=== PATIENT | male | born 1995 | race Two or more races ===

== ENCOUNTER 2018-12-03 12:17 | Emergency (ER) | payer SELFPAY ==
[~2018-12-03] VITALS: Ht 177.8 cm; Wt 82.3 kg
[2018-12-03 12:54] VITALS: Ht 177.8 cm; Wt 82.3 kg
[2018-12-03] MEDS ORDERED: TORADOL10 MG PO (16:06)
[2018-12-03 16:23] VITALS: BP 120/62
== END 2018-12-03 16:23 | disposition home or self-care (01) ==
LOC: D.ER 12:17
DX: S61.210A Laceration without foreign body of right index finger without damage to nail, initial encounter (principal); W26.8XXA Contact with other sharp object(s), not elsewhere classified, initial encounter; Y93.89 Activity, other specified; Y92.89 Other specified places as the place of occurrence of the external cause